=== PATIENT | female | born 1960 | race Caucasian/White ===

== ENCOUNTER 2017-12-24 09:12 | Emergency (ER) | payer SELFPAY ==
[~2017-12-24] VITALS: Ht 167.6 cm; Wt 117.9 kg
[2017-12-24 09:33] VITALS: BP_SYST 155
[2017-12-24] MEDS ORDERED: fentaNYL CITRATE/PF 100 MCG/2 ML AMP IM ONE (10:00)
[2017-12-24] MEDS ORDERED: KETOROLAC TROMETHAMINE 60 MG/2 ML VIAL IM ONE (10:00)
[2017-12-24] MEDS ORDERED: ONDANSETRON 4 MG ODT TAB PO ONE (10:00)
[2017-12-24] MEDS ORDERED: cloNIDine HCL 0.1 MG TABLET PO ONE (10:15)
[2017-12-24 12:01] VITALS: BP_SYST 143
== END 2017-12-24 12:01 | disposition home or self-care (01) ==
LOC: SED 09:12
DX: R51 Headache (principal); I10 Essential (primary) hypertension
CPT/HCPCS: 70450; 96372; 99284; J1885; J3010; Q0162